=== PATIENT | female | born 1990 | race Caucasian/White ===

== ENCOUNTER → 2016-11-18 16:39 | Observation (INO) ==
--- NOTE | 2016-11-18 15:24 | OB/GYN History & Physical ---
Date of Encounter: 11/18/16 Time of Encounter: 15:20 Assessment and Plan (1) Vaginal discharge during in third trimester Current visit: Yes Status: Acute - Nitrazine test negative -We will monitor and discharge if patient does not progress. History of Present Illness HPI: Ms. Francois is a 26 year old female who is 39 weeks and is a . She states that she has had a watery discharge today that she thought was possibly her water broken. She has not felt any contractions. She does not appear to be having consistent contractions here. Her nitrazine test was negative. Her cervix is high and posterior. Past Med Surg Social Fam HX - Past Medical History Psychiatric history: no psych history - Past Surgical History Surgical History: other - Social History Smoking Status: Never smoker - Family History Mother Living Status: Still Living Hx Family Cardiac Disorders: Yes (HTN, AFIB) Hx Family Endocrine Disorder: Yes (BORDERLINE DIABETIC.) Hx Family Medical Disorders: Yes (AV MALFORMATION IN BRAIN) Obstetrical History - Pregnancies : 1 Para: 0 Medications and Allergies Tablet 11/18/16 [History] Allergies No Known Allergies Allergy (Verified 11/18/16 15:16) Review of System OB All systems PM: reviewed and no additional remarkable complaints except as stated - Constitutional Constitutional ROS IM: no anorexia, no chills, no fatigue, no fever(s), no headache(s) - Nose, mouth, and throat Nose, mouth and throat: no dysphagia, no facial pain, no nasal congestion, no nasal discharge, no sore throat, no vertigo - Cardiovascular Cardiovascular: no chest pain, no dyspnea, no edema, no pedal edema - Respiratory Respiratory: no cough, no chest congestion - Gastrointestinal Gastrointestinal: no abdominal pain, no change in bowel habits, no constipation , no diarrhea, no hematemesis, no hematochezia, no loose stools, no nausea, no vomiting - Genitourinary Genitourinary: other (Patient reports a small amount of blood on the toilet paper after she urinated today. She also reports a four-day history of burning after she urinates. She states this happens after she urinates a small amount.) - Muscloskeletal Musculoskeletal: no arthralgias, no back pain, no joint swelling, no muscle cramps, no neck pain - Integumentary Integumentary: no rash Exam - Constitutional Constitutional: well developed, well nourished, no acute distress - HEENT HEENT: EOMI, PERRL, Normocephaly, Mucus Membranes Moist - Neck Neck exam: full ROM, normal inspection, trachea midline - Lungs Respiratory exam: CTAB - Cardiovascular Cardiovascular exam: RRR - Abdomen Abdomen: Present: bowel sounds normal, gravid, non tender - Extremities Extremities exam: full ROM, normal capillary refill, normal inspection, radial pulses palpable and symetrical Deep Tendon Reflex Grade: 2+ Normal Results All other labs normal.
[2016-11-18 15:44] LABS: Bilirubin,Urine Negative (Negative); Blood,Urine Small (Negative); Clarity,Urine Cloudy (Clear); Color,Urine Yellow (Yellow); Glucose,Urine (UA) Normal (Normal); Ketones,Urine Negative (Negative); Leukocyte Esterase,Urine Moderate (Negative); Nitrite,Urine Negative (Negative); Protein,Urine Negative (Neg-Trace); Specific Gravity,Urine 1.022 (1.010-1.025); Urobilinogen,Urine Normal (Normal)
[2016-11-18 15:47] LABS: Bacteria,Urine Many per hpf (None-Few); Squamous Epithelial Cell,Urine Many per lpf (None-Few); WBC,Urine 15-30 per hpf (0-3)
--- NOTE | 2016-11-18 16:17 | Discharge Summary ---
Date of Encounter: 11/18/16 Time of Encounter: 16:17 - Discharge Diagnosis (1) Vaginal discharge during in third trimester Priority: Secondary Status: Acute Comments: Nitrazine negative. (2) UTI (urinary tract infection) Priority: Primary Status: Acute Comments: -Keflex outpatient. -Follow-up with Dr. Mantilla in the office. Qualifiers: Urinary tract infection type: acute cystitis Hematuria presence: with hematuria Qualified Code(s): N30.01 - Acute cystitis with hematuria - Discharge Medications Prescriptions: Cephalexin [Keflex] 500 mg PO QID 7 Days Home Medications: Cephalexin [Keflex] 500 mg PO QID 7 Days 11/18/16 [Rx] Tablet 11/18/16 [History] Allergies/Adverse Reactions: Allergies No Known Allergies Allergy (Verified 11/18/16 15:16) Data Procedures and tests throughout hospitalization: Laboratory Tests 11/18/16 15:40 Urine Color Yellow Urine Clarity Cloudy A Urine pH 6.0 Ur Specific [place] 1.022 Urine Protein Negative Urine Glucose (UA) Normal Urine Ketones Negative Urine Blood Small H Urine Nitrite Negative Urine Bilirubin Negative Urine Urobilinogen Normal Ur Leukocyte Esterase Moderate H Urine Microscopic RBC 5-15 H Urine Microscopic WBC 15-30 H Ur Squamous Epith Cells Many H Urine Bacteria Many H Hyaline Casts Test Not Performed Ur Culture Indicated? YES A Labs on day of discharge: Labs from last 24 hours 11/18/16 15:40 Urine Color Yellow Urine Clarity Cloudy A Urine pH 6.0 Ur Specific [place] 1.022 Urine Protein Negative Urine Glucose (UA) Normal Urine Ketones Negative Urine Blood Small H Urine Nitrite Negative Urine Bilirubin Negative Urine Urobilinogen Normal Ur Leukocyte Esterase Moderate H Urine Microscopic RBC 5-15 H Urine Microscopic WBC 15-30 H Ur Squamous Epith Cells Many H Urine Bacteria Many H Hyaline Casts Test Not Performed Ur Culture Indicated? YES A Date of admission: 11/18/16 14:39 Primary care physician: PCP NO - Patient Status Disposition: Home, Self-Care Condition: Good - Discharge Instructions Follow Up With: TC,PCP [Primary Care Provider] - Luciana Mantilla DO [Partnered Physician] - - Diet and Activity Activity: increase activity as tolerated Diet: regular diet Hospital Course SALES LEADER Time Attestation: Total time spent providing and/or coordinating discharge services: Time Spent: Less than 30 minutes - VTE Reasons for not Prescribing Prophylaxis: Treatment not Indicated - Low risk for VTE
== END | disposition home or self-care (01) ==
LOC: 1NENULAB
PROVIDERS: ADMIT Emergency Medicine; ATTEND Obstetrics & Gynecology

== ENCOUNTER 2016-11-27 06:00 | Inpatient (IN) ==
[2016-11-27] MEDS ORDERED: miSOPROStol 25 MCG TABLET PO PRN (06:59)
[2016-11-27] MEDS ORDERED: Naloxone 0.4 MG/ML INJ IVP PRN (06:59)
[2016-11-27] MEDS ORDERED: Metoclopramide 10 MG/2 ML VIAL IVP PRN (06:59)
[2016-11-27] MEDS ORDERED: Famotidine 20 MG/2 ML VIAL IVP PRN (06:59)
[2016-11-27 07:14] LABS: Basophils % 0.2 %; Eosinophils # 0.1 K/mcL (0.0-0.6); Eosinophils % 0.7 %; Hematocrit 36.7 % (35.3-44.9); Hemoglobin 11.7 g/dL (11.5-15.4); Immature Granulocytes % 0.4 % (0-4); Lymphocytes # 1.7 K/mcL (0.6-4.6); Lymphocytes % 20.1 %; Mean Corpuscular HGB Conc 31.9 g/dL (31.6-35.5); Mean Corpuscular Hemoglobin 27.5 pg (28.0-33.3); Mean Corpuscular Volume 86.2 fL (83.0-100.0); Mean Platelet Volume 12.4 fL (9.4-12.4); Monocytes # 0.6 K/mcL (0.0-1.3); Monocytes % 7.3 %; Neutrophils # 6.1 K/mcL (1.6-8.9); Platelet Count 186 K/mcL (140-400); Red Blood Count 4.26 M/mcL (3.82-4.97); Red Cell Distribution Width 15.7 % (11.5-14.5); Segmented Neutrophils % 71.3 %
--- NOTE | 2016-11-27 10:27 | OB/GYN History & Physical ---
Date of Encounter: 11/27/16 Time of Encounter: 10:25 Assessment and Plan (1) Post-term , 40-42 weeks of gestation Current visit: Yes Status: Acute - Induction due to gestation being post 40 weeks. - Cytotec given. - We will continue to monitor normal labor progression. History of Present Illness HPI: Ms. Francois is a 26 year old female at 40 weeks and 3 days presenting for induction. She is resting comfortably in bed with no complaints at this time. She states she does feel her contractions mildly. She states she is not in any discomfort. She states she may have an epidural but at this time does not request one. Past Med Surg Social Fam HX - Past Medical History Source: patient Medical history: no medical history Psychiatric history: no psych history - Past Surgical History Surgical History: other (wisdom teeth) - Social History Smoking Status: Never smoker Smokeless Tobacco Status: No Alcohol use: none Drug use: none - Family History Mother Living Status: Still Living Hx Family Cardiac Disorders: Yes (HTN) Hx Family Cancer: Yes (uterine cancer, hysterectomy) Hx Family Endocrine Disorder: Yes (renal failure) Obstetrical History - Pregnancies : 1 Para: 0 Medications and Allergies Cephalexin [Keflex] 500 mg PO QID 7 Days 11/18/16 [Rx] Tablet 1 tab PO DAILY 11/18/16 [History] Allergies No Known Allergies Allergy (Verified 11/27/16 06:13) Review of System OB All systems PM: reviewed and no additional remarkable complaints except as stated - Constitutional Constitutional ROS IM: no chills, no fever(s), no headache(s) - Nose, mouth, and throat Nose, mouth and throat: no dizziness, no headache(s) - Cardiovascular Cardiovascular: no chest pain, no chest pain at rest, no chest pain with activity, no dyspnea, no leg edema, no lightheadedness, no syncope - Respiratory Respiratory: no cough, no dyspnea, no chest congestion - Gastrointestinal Gastrointestinal: no change in bowel habits, no constipation, no cramping, no diarrhea, no hematemesis, no hematochezia, no loose stools, no melena, no nausea , no vomiting - Genitourinary Genitourinary: amenorrhea, vaginal discharge (Brownish in color) - Menstruation Menstruation: amenorrhea - Muscloskeletal Musculoskeletal: no neck pain, no numbness, no tingling - Integumentary Integumentary: no rash - Neurological Nerological: no dizziness, no headache(s), no loss of vision, no syncope, no vertigo Exam - Constitutional Constitutional: well developed, well nourished, no acute distress, average body habitus - HEENT HEENT: EOMI, PERRL, Normocephaly, Mucus Membranes Moist - Neck Neck exam: full ROM, normal inspection - Lungs Respiratory exam: CTAB - Cardiovascular Cardiovascular exam: RRR - Abdomen Abdomen: Present: bowel sounds normal, gravid, non tender - Extremities Extremities exam: full ROM, normal capillary refill, radial pulses palpable and symetrical - Cervix Dilation: 3 Effacement: 75 Station: -3 - Uterus Uterus exam: Present: normal size, normal contour. Absent: tender Results Result Diagrams: 11/27/16 06:52 Abnormal lab results MCH 27.5 pg (28.0-33.3) L 11/27/16 06:52 RDW 15.7 % (11.5-14.5) H 11/27/16 06:52 All other labs normal. - Attending Attestation I examined this patient and my medical decision-making was reviewed with the Resident Physician. I agree with the documented findings, disposition and treatment plan as described except to the extent set forth below. Luciana Mantilla DO
--- NOTE | 2016-11-27 11:18 | OB Labor Progress Note ---
Date of Encounter: 11/27/16 Time of Encounter: 11:16 Labor Progress Note - Subjective Subjective: Pt comfortable at this time. - Cervix Cervix: 3-4/80/-1 - Heart Tones Heart Tones: Category I - [place]: 1-5 minutes - Interventions Interventions: AROM for moderate amount clear fluid. IUPC placed. - Plan Plan: Continue to monitor. Pt to be OOB on birthing ball. Will augment labor with pitocin if needed.
[2016-11-27] MEDS ORDERED: Oxytocin 20 units/ LR 1000 mL 20 UNIT/1,000 ML BAG IVC SCH (11:45)
[2016-11-27] MEDS: Ringers Solution, Lactated 1,000 ML IVC SCH ×3 (12:19→23:29)
[2016-11-27] MEDS ORDERED: *HR* Nalbuphine 20 MG/ML AMPUL IVP PRN (12:36)
[2016-11-27] MEDS ORDERED: *HR* Nalbuphine 20 MG/ML AMPUL ONE (12:38)
[2016-11-27] MEDS ORDERED: *HR* FentaNYL (PF) 100 MCG/2 ML VIAL EP ONE (14:42)
[2016-11-27] MEDS ORDERED: Bupivacaine-MPF 0.25% 10 ML VIAL EP ONE (14:42)
[2016-11-27] MEDS ORDERED: Epidural Premix (fent/bupiv) 110 ML EP SCH (14:45)
[2016-11-27] MEDS ORDERED: *HR* FentaNYL (PF) 100 MCG/2 ML VIAL ONE (14:47)
[2016-11-27] MEDS ORDERED: Bupivacaine-MPF 0.25% 10 ML VIAL ONE (14:48)
[2016-11-27] MEDS ORDERED: Epidural Premix (fent/bupiv) 110 ML EP ONE ×2 (14:48→21:14)
--- NOTE | 2016-11-27 15:29 | Anesthesia Evaluation PreOp ---
Date of Encounter: 11/27/16 Time of Encounter: 14:33 - Past History Planned Operation: labor epidural Cardiac History: Denies any Significant Hx Pulmonary History: Denies Any Significant HX CAT TENDER History: Denies Any Significant HX Other Medical History: Denies Any Significant HX Anesthesia History: No Prior Anesthetic Complications, Past Anesthesia (wisdom teeth extracted. No family history of anesthetic problems) : Yes Alcohol Use: none Drug use: none Medications and Allergies Cephalexin [Keflex] 500 mg PO QID 7 Days 11/18/16 [Rx] Tablet 1 tab PO DAILY 11/18/16 [History] Allergies No Known Allergies Allergy (Verified 11/27/16 06:13) - Meds/Allergy Pre-op Review Medications Reviewed: Yes Allergies Reviewed: Yes Beta Blockers on Current Med List: No Anesthesia Results - Labs 11/27/16 06:52 Anesthesia Exam 123/85, 70, 16, 98%. Height: 5'7" Weight: 77kg NPO (# of Hours): 8 Pain Scale: 10 Pain Scale Used: Numeric (1 - 10) - HEENT Pupil (Motor): Pupils equal, EOMI Mallampati: II Teeth: Normal Oral Opening: Greater than 3 - CAT TENDER LOC: Oriented CAT TENDER Motor: Normal RUE, Normal LUE, Normal RLE, Normal LLE, Normal Face CAT TENDER Sensory: Normal: RUE, LUE, RLE, LLE, Face - Cardiac Rhythm: Regular Murmur: None - Pulmonary Breath Sounds: bilateral Clear Respiratory Effort: Symmetrical Anesthesia Assess/Plan ASA Score: 2 Modified [place] Scale for Level of Consciousness: Cooperative, oriented, and tranquil Anesthetic Plan: Regional Monitoring Plan: Standard Monitors
--- NOTE | 2016-11-27 15:33 | Anesthesia Procedures ---
Date of Encounter: 11/27/16 Time of Encounter: 15:00 Procedures: Anesthesia - Epidural/Spinal Patient ID/Chart reviewed: Yes Patient examined: Yes OB Eval: Gestational age: 40 OB Eval: : 1 OB Eval: Hx Para: 0 OB Eval: Dilated at (cm): 3 OB Eval: Contractions: Non-stressed pattern Consent Obtained: Yes Supplemental Oxygen: None/Room Air Site Prep: Aseptic Technique, Sterile prep and drape, Povidone-Iodine 1% Patient position: upright Local Anesthetic: Lidocaine 1% Amount of Local Anesthetic used: 3 Touhy Needle Gauge: 18 Touhy Needle Depth (cm): 5 Catheter Depth at Skin (cm): 18 Test Dose (1.5% Lido + Epi): Volume given (mls): 3 Test Dose Result: Negative Loading Dose: 0.25% Marcaine (mls): 8 Loading Dose: Fentanyl (mcg): 100 Loading Dose Administered: Thru Catheter Infusion Med: 0.125% Bupivacaine w/ 2 mcg/ml Fentanyl Infusion Rate (mls/hr): [address]: Tegaderm (16), Tape Interspace Used: L3-L4 Loss of Resistance (LATIA): Yes Blood: No CSF: No Paresthesia: No Vitals + FHT's: 3 Vital Signs Time 1500 1505 1510 1515 1520 1525 BP 137/75 126/82 124/79 126/85 126/77 125/77 Pulse 70 73 94 95 77 86 FHTs 130 130 130 130 130 130
--- NOTE | 2016-11-27 16:38 | OB Labor Progress Note ---
Date of Encounter: 11/27/16 Time of Encounter: 16:37 Labor Progress Note - Subjective Subjective: Pt comfortable with epidural - Cervix Cervix: 6/80/-1 - Heart Tones Heart Tones: Category I - [place]: 2-3 1/2 minutes - Plan Plan: Continue to titrate pitocin. Anticipate .
[2016-11-27] MEDS ORDERED: Lidocaine 1% 20 ML MDV ONE (21:14)
[2016-11-27] MEDS ORDERED: Acetaminophen 325 MG TABLET PO ONE (23:16)
[2016-11-28] MEDS ORDERED: Epidural Premix (fent/bupiv) 110 ML EP ONE (04:03)
--- NOTE | 2016-11-28 05:46 | OB/GYN Procedure Note ---
Delivery - Delivery Date: 11/28/16 Provider: Luciana Mantilla Intrapartum events: none Delivery induction: AROM, oxytocin, misoprostol Delivery monitor: external FHT, external uterine, internal uterine Anesthesia: epidural Estimated Blood Loss: 400 - Infant (s) Infant A Infant Delivery Date: 11/28/16 Infant Delivery Time: 05:19 Presentation: vertex Position: CHRISTIANO Route of delivery: Gender: Female Viability: Viable Pounds: 8 Ounces: 3 Weight Gram: 3.725 kg at 1 minute: 8 at 5 mins: 9 Shoulder Dystocia: not encountered Specimens collected: cord blood Placenta: spontaneous Cord: 3 umbilical vessels - Repair Episiotomy: none Laceration Description: Perineal - 1st Degree - Complications Delivery complications: none Delivery comments: Called to room with patient complete and +3 station. Under maternal effort she delivered a viable female weighing 8 lbs. 3 oz. and Apgars 8 and 9 at one and 5 minutes respectively over an first-degree perineal laceration. Following delivery of the head there was no nuchal cord encountered. The infant was bulb suctioned. The remainder of the delivered with maternal effort. No shoulder dystocia was encountered. was placed on mom's abdomen and cord was allowed to pulsate for 1 minute prior to clamping and cutting. Cord blood was collected. Placenta delivered spontaneously, complete, and intact with a three-vessel cord. The first-degree/vaginal sulcus laceration was repaired using 0 Vicryl in a running locked fashion until hemostasis was assured. Sponge and needle counts were correct at the end of the procedure. Mother and infant are recovering in the LDR in stable condition. - Disposition Mom disposition: stable in LDR disposition: stable in LDR
[2016-11-28] MEDS ORDERED: Oxytocin 20 units/ LR 1000 mL 20 UNIT/1,000 ML BAG IVC ONE (08:14)
[2016-11-28] MEDS ORDERED: Acetaminophen 325 MG TABLET PO PRN (08:14)
[2016-11-28] MEDS ORDERED: Oxytocin 20 units/ LR 1000 mL 20 UNIT/1,000 ML BAG IV SCH (08:14)
[2016-11-28] MEDS: Ibuprofen 600 MG TABLET PO PRN (09:10)
[2016-11-28] MEDS: Prenatal Vit/FA 1 EACH TABLET PO SCH (12:09)
[2016-11-28] MEDS: cephALEXin 500 MG CAPSULE PO SCH ×3 (12:09→20:45)
[2016-11-29] MEDS: Ibuprofen 600 MG TABLET PO PRN (03:44)
[2016-11-29 05:17] LABS: Basophils % 0.2 %; Eosinophils # 0.2 K/mcL (0.0-0.6); Eosinophils % 1.2 %; Hematocrit 30.4 % (35.3-44.9); Immature Granulocytes % 0.7 % (0-4); Lymphocytes # 2.2 K/mcL (0.6-4.6); Lymphocytes % 13.5 %; Mean Corpuscular HGB Conc 31.9 g/dL (31.6-35.5); Mean Corpuscular Volume 87.6 fL (83.0-100.0); Mean Platelet Volume 12.1 fL (9.4-12.4); Monocytes # 0.7 K/mcL (0.0-1.3); Monocytes % 4.4 %; Platelet Count 155 K/mcL (140-400); Red Blood Count 3.47 M/mcL (3.82-4.97); Red Cell Distribution Width 16.7 % (11.5-14.5)
[2016-11-29 05:25] LABS: Hemoglobin 9.7 g/dL (11.5-15.4)
[2016-11-29] MEDS: cephALEXin 500 MG CAPSULE PO SCH (08:46)
[2016-11-29] MEDS: Prenatal Vit/FA 1 EACH TABLET PO SCH (08:47)
--- NOTE | 2016-11-29 09:14 | Discharge Summary ---
Date of Encounter: 11/29/16 Time of Encounter: 09:12 - Discharge Diagnosis (1) Post-term , 40-42 weeks of gestation Priority: Primary Status: Chronic (2) Vaginal delivery Priority: Primary Status: Acute Comments: Routine PP care. - Discharge Medications Prescriptions: Ibuprofen [Motrin] 600 mg PO Q6HR PRN #60 tablet PRN Reason: Cramping Home Medications: Cephalexin [Keflex] 500 mg PO QID 7 Days 11/18/16 [Rx] Tablet 1 tab PO DAILY 11/18/16 [History] Ibuprofen [Motrin] 600 mg PO Q6HR PRN #60 tablet 11/29/16 [Rx] Allergies/Adverse Reactions: Allergies No Known Allergies Allergy (Verified 11/27/16 06:13) Data Procedures and tests throughout hospitalization: Laboratory Tests 11/27/16 11/29/16 06:52 04:33 WBC 8.5 16.3 H D RBC 4.26 3.47 L Hgb 11.7 9.7 L D Hct 36.7 30.4 L MCV 86.2 87.6 MCH 27.5 L 28.0 MCHC 31.9 31.9 RDW 15.7 H 16.7 H Plt Count 186 155 MPV 12.4 12.1 Immature Gran % 0.4 0.7 Seg Neutrophils % 71.3 80.0 Lymphocytes % 20.1 13.5 Monocytes % 7.3 4.4 Eosinophils % 0.7 1.2 Basophils % 0.2 0.2 Neutrophils # 6.1 13.0 H Lymphocytes # 1.7 2.2 Monocytes # 0.6 0.7 Eosinophils # 0.1 0.2 Basophils # 0.0 0.0 Labs on day of discharge: Labs from last 24 hours 11/29/16 04:33 WBC 16.3 H D RBC 3.47 L Hgb 9.7 L D Hct 30.4 L MCV 87.6 MCH 28.0 MCHC 31.9 RDW 16.7 H Plt Count 155 MPV 12.1 Immature Gran % 0.7 Seg Neutrophils % 80.0 Lymphocytes % 13.5 Monocytes % 4.4 Eosinophils % 1.2 Basophils % 0.2 Neutrophils # 13.0 H Lymphocytes # 2.2 Monocytes # 0.7 Eosinophils # 0.2 Basophils # 0.0 Date of admission: 11/27/16 06:00 Primary care physician: PCP NO Consults: 11/28/16 08:14 Consult to Sustainability Project Coordinator [CONS] Routine Comment: Vaginal delivery, consult needed Discharging clinician: Luciana Mantilla Anticipated date of discharge: 11/29/16 - Patient Status Disposition: Home, Self-Care Condition: Good Functional capacity at discharge: independent ambulation Overall status at discharge: patient is progressing back to baseline - Discharge Instructions Follow Up With: TC,PCP [Primary Care Provider] - Luciana Mantilla DO [Partnered Physician] - - Diet and Activity Activity: increase activity as tolerated Diet: advance to your usual diet Hospital Course Reason for admission: induction of labor Delivery: Episiotomy: none Laceration: 2nd degree Other procedures: none complications: none Discharge diagnosis: post term preg-delivered [place] baby: female Time Attestation: Total time spent providing and/or coordinating discharge services: Time Spent: Less than 30 minutes Exam - Constitutional Vitals: Temp Pulse Resp BP Pulse Ox 97.4 F L 84 20 124/88 100 11/29/16 03:58 11/29/16 03:58 11/29/16 08:49 11/29/16 03:58 11/29/16 03:58 General appearance IM: A&O X 3, no acute distress - Respiratory Respiratory exam: Present: CTAB. Absent: respiratory distress - Cardiovascular Cardiovascular exam IM: Present: RRR. Absent: irregular rhythm - GI/Abdominal GI/Abdominal exam IM: normal bowel sounds - Rectal Rectal exam: deferred - Uterine Tone: Firm Uterus Position: At Umbilicus - Extremities Exam Extremities exam IM: Absent: calf tenderness
[2016-11-29 09:22] VITALS: BP 121/85
[2016-11-29] MEDS ORDERED: Lanolin 7 G OINT...G. TP PRN (12:03)
== END 2016-11-29 13:08 | disposition home or self-care (01) | DRG 775 ==
LOC: 1NENULAB 06:00 → 1NENUOBS 11-28 09:25
PROVIDERS: ADMIT Obstetrics & Gynecology; ATTEND Obstetrics & Gynecology

== ENCOUNTER 2019-02-08 05:58 | Inpatient (IN) ==
[2019-02-08] MEDS ORDERED: Metoclopramide 10 MG/2 ML VIAL IVP PRN (06:34)
[2019-02-08] MEDS ORDERED: *HR* Nalbuphine 10 MG/ML AMPUL IVP PRN (06:34)
[2019-02-08] MEDS ORDERED: Famotidine 20 MG/2 ML VIAL IVP PRN (06:34)
[2019-02-08] MEDS ORDERED: Ondansetron 4 MG/2 ML VIAL IVP PRN (06:34)
[2019-02-08] MEDS ORDERED: Naloxone 0.4 MG/ML INJ IVP PRN (06:34)
[2019-02-08] MEDS ORDERED: Oxytocin 20 units/ LR 1000 mL 20 UNIT/1,000 ML BAG IVC SCH ×2 (06:45→15:59)
[2019-02-08] MEDS ORDERED: Ringers Solution, Lactated 1,000 ML IVC SCH (06:45)
[2019-02-08 06:56] LABS: Amphetamine Screen,Urine Negative ng/mL (Cutoff=1000); Barbiturate Screen,Urine Negative ng/mL (Cutoff=200); Basophils % 0.2 %; Eosinophils % 0.3 %; Hemoglobin 11.4 g/dL (11.5-15.4); Immature Granulocytes % 0.4 % (0-4); Lymphocytes # 1.3 K/mcL (0.6-4.6); Lymphocytes % 8.9 %; Mean Corpuscular HGB Conc 31.7 g/dL (31.6-35.5); Mean Corpuscular Hemoglobin 26.8 pg (28.0-33.3); Mean Corpuscular Volume 84.7 fL (83.0-100.0); Mean Platelet Volume 11.7 fL (9.4-12.4); Monocytes # 0.8 K/mcL (0.0-1.3); Monocytes % 5.8 %; Neutrophils # 11.9 K/mcL (1.6-8.9); Platelet Count 197 K/mcL (140-400); Red Blood Count 4.25 M/mcL (3.82-4.97); Red Cell Distribution Width 13.8 % (11.5-14.5); Segmented Neutrophils % 84.4 %
[2019-02-08 06:57] LABS: Benzodiazepines Screen,Urine Negative ng/mL (Cutoff=300); Cannabinoid Screen,Urine Negative ng/mL (Cutoff = 50); Cocaine Screen,Urine Negative ng/mL (Cutoff= 300); Opiate Screen,Urine Negative ng/mL (Cutoff=300); Phencyclidine Screen,Urine Negative ng/mL (Cutoff=25)
[2019-02-08] MEDS ORDERED: *HR* FentaNYL (PF) 100 MCG/2 ML VIAL ONE (07:41)
[2019-02-08] MEDS ORDERED: Lidocaine -MPF 1% 5 ML AMPUL ONE (07:41)
[2019-02-08] MEDS ORDERED: *HR* Ropivacaine/PF 0.2% 20 ML VIAL ONE (07:41)
--- NOTE | 2019-02-08 07:47 | OB/GYN History & Physical ---
Date of Encounter: 02/08/19 Time of Encounter: 07:30 Assessment and Plan (1) 39 weeks gestation of Current visit: Yes Status: Acute (2) Spontaneous onset of labor Current visit: Yes Status: Acute Patient was examined by RN and cervix 6-7 cm dilated. She is requesting epidura l. We will consult anesthesia for epidural placement and then continue to manage expectantly with EFM History of Present Illness Chief complaint: painful contractions HPI: Ms. Francois is a 28 year old female G 2 P 1-0-0-1 at 39 2/7 weeks presents to labor and delivery with painful contractions every 3-4 minutes. She has also noticed some vaginal bleeding this AM. She denies any leaking fluid. She reports good movement. Her has been uncomplicated. Past Med Surg Social Fam HX - Past Medical History Source: patient Medical history: no medical history Psychiatric history: no psych history - Past Surgical History Surgical History: other Additional surgical history: wisdom teeth - Social History Smoking Status: Never smoker Smokeless Tobacco Status: No Alcohol use: none Drug use: none Occupational status: student Current living situation: Home - Independent Activity Level: Independent ambulation - Family History Mother Living Status: Still Living Hx Family Cardiac Disorders: Yes (HTN) Hx Family Cancer: Yes (uterine cancer, hysterectomy) Hx Family Endocrine Disorder: Yes (renal failure) Hx Family Medical Disorders: Yes (AVM) Obstetrical History - Pregnancies : 2 Para: 1 Term: 1 : 0 Ab's: 0 Livin Medications and Allergies Tablet 1 tab PO DAILY 11/18/16 [History] Allergy/AdvReac Type Severity Reaction Status Date / Time No Known Allergies Allergy Verified 11/27/16 06:13 Review of System OB All systems PM: reviewed and no additional remarkable complaints except as stated - Constitutional Constitutional ROS IM: as per HPI, no fever(s), no headache(s) - Gastrointestinal Gastrointestinal: no cramping, no nausea, no vomiting - Genitourinary Genitourinary: amenorrhea, no menorrhagia, no metrorrhagia - Menstruation Menstruation: amenorrhea Exam - Constitutional Constitutional: well developed, well nourished, no acute distress, average body habitus - HEENT HEENT: Normocephaly, Mucus Membranes Moist - Lungs Respiratory exam: CTAB - Cardiovascular Cardiovascular exam: RRR - Abdomen Abdomen: Present: bowel sounds normal, gravid, non tender (Kanu's 8 pounds in cephalic presentation) - Cervix Dilation: 6 Effacement: 80 Station: -2 Results Result Diagrams: 02/08/19 06:38 Abnormal lab results WBC 14.1 K/mcL (4.3-11.1) H 02/08/19 06:38 Hgb 11.4 g/dL (11.5-15.4) L 02/08/19 06:38 MCH 26.8 pg (28.0-33.3) L 02/08/19 06:38 Neutrophils # 11.9 K/mcL (1.6-8.9) H 02/08/19 06:38 All other labs normal. - VTE Reasons for not Prescribing Prophylaxis: Treatment not Indicated - Low risk for VTE
[2019-02-08] MEDS ORDERED: Epidural Premix (fent/bupiv) 110 ML EP ONE (08:02)
--- NOTE | 2019-02-08 08:33 | Anesthesia Evaluation PreOp ---
Date of Encounter: 02/08/19 Time of Encounter: 07:55 - Past History Planned Operation: andreia Cardiac History: Denies any Significant Hx Pulmonary History: Denies Any Significant HX CUSTOMER OPERATIONS INTERN History: Denies Any Significant HX Other Medical History: Denies Any Significant HX Anesthesia History: No Prior Anesthetic Complications, Past Anesthesia : Yes () Alcohol Use: none Drug use: none Medications and Allergies Tablet 1 tab PO DAILY 11/18/16 [History] Allergy/AdvReac Type Severity Reaction Status Date / Time No Known Allergies Allergy Verified 11/27/16 06:13 - Meds/Allergy Pre-op Review Medications Reviewed: Yes Allergies Reviewed: Yes Beta Blockers on Current Med List: No Anesthesia Results - Labs 02/08/19 06:38 Anesthesia Exam O2 Sat Height 1.7 m Weight 80.286 kg Height: 67 Weight: 177 - HEENT Pupil (Motor): Pupils equal Mallampati: II Teeth: Normal Oral Opening: Greater than 3 - CUSTOMER OPERATIONS INTERN LOC: Oriented CUSTOMER OPERATIONS INTERN Motor: Normal RUE, Normal LUE, Normal RLE, Normal LLE, Normal Face CUSTOMER OPERATIONS INTERN Sensory: Normal: RUE, LUE, RLE, LLE, Face - Cardiac Rhythm: Regular Murmur: None JVD: No Carotid Bruit: No - Pulmonary Breath Sounds: bilateral Clear Respiratory Effort: Symmetrical Anesthesia Assess/Plan ASA Score: 2 Level of consciousness: Cooperative Anesthetic Plan: Epidural Monitoring Plan: Standard Monitors
--- NOTE | 2019-02-08 08:35 | Anesthesia Procedures ---
Date of Encounter: 02/08/19 Time of Encounter: 07:55 Procedures: Anesthesia - Epidural/Spinal Patient ID/Chart reviewed: Yes Patient examined: Yes OB Eval: : 2 OB Eval: Hx Para: 1 OB Eval: Contractions: Non-stressed pattern Consent Obtained: Yes Supplemental Oxygen: None/Room Air Site Prep: Aseptic Technique Patient position: upright Local Anesthetic: Lidocaine 1% Amount of Local Anesthetic used: 3 Touhy Needle Gauge: 18 Touhy Needle Depth (cm): 4 Catheter Depth at Skin (cm): 12 Test Dose (1.5% Lido + Epi): Volume given (mls): 3 Test Dose Result: Negative Loading Dose: Fentanyl (mcg): 100 Loading Dose: Other: 5ml 0.2% ropivicaine Loading Dose Administered: Thru Touhy Needle Infusion Med: 0.125% Bupivacaine w/ 2 mcg/ml Fentanyl Infusion Rate (mls/hr): [address]: Tegaderm Interspace Used: L3-L4 Loss of Resistance (LATIA): Yes Blood: No CSF: No Paresthesia: No
--- NOTE | 2019-02-08 08:40 | OB Labor Progress Note ---
Date of Encounter: 02/08/19 Time of Encounter: 08:38 Labor Progress Note - Subjective Subjective: Patient comfortable after her epidural. She denies any complaints. - Cervix Cervix: 7/80/-1 vertex - Heart Tones Heart Tones: 140, category 1 with scalp stim noted on exam - [place]: q 3- 4minutes spontaneously - Interventions Interventions: AROM with clear fluid. Continue expectant management with EFM
[2019-02-08] MEDS ORDERED: Epidural Premix (fent/bupiv) 110 ML EP SCH (08:45)
[2019-02-08] MEDS ORDERED: Acetaminophen 325 MG TABLET PO ONE (10:19)
[2019-02-08] MEDS ORDERED: ceFAZolin 1,000 MG in Water for inj. (sterile) 20 ML 10 ML IVP SCH (13:05)
[2019-02-08] MEDS ORDERED: Oxytocin 20 units/ LR 1000 mL 20 UNIT/1,000 ML BAG IVC ONE (15:59)
[2019-02-08] MEDS ORDERED: Acetaminophen 325 MG TABLET PO PRN (15:59)
[2019-02-08] MEDS: Ibuprofen 600 MG TABLET PO PRN (16:30)
--- NOTE | 2019-02-08 17:14 | OB/GYN Procedure Note ---
Delivery - Delivery Date: 02/08/19 Provider: Luciana Mantilla Intrapartum events: febrile- temp >100.3, polyhydramnios Delivery augmentation: rupture of membranes Delivery monitor: external FHT, external uterine Anesthesia: epidural Quantitated Blood Loss: 400 - Infant (s) A Delivery Date: 02/08/19 Delivery Time: 14:13 Presentation: vertex Position: CHRISTIANO Gender: Female Viability: Viable Pounds: 8 Ounces: 8 Weight Gram: 3.845 kg at 1 minute: 7 at 5 mins: 9 Shoulder Dystocia: not encountered Specimens collected: cord blood Placenta: spontaneous Cord: 3 umbilical vessels - Repair Episiotomy: none Laceration Description: None - Complications Delivery complications: none Delivery comments: Called to room with patient complete and +1 station. Under maternal effort she delivered a viable female weighing 8 pounds 8 oz and Apgars 7 and 9 at one and five minutes respectively over an intact perineum. Following the delivery the cord was allowed to cease pulsations. It was then double clamped and cut with assistance from the father. The placenta delivered spontaneous, complete, and intact with a 3 vessel cord. There were no vaginal, cervical, or vulvar lacerations on exam. No shoulder dystocia or nuchal cord encountered in the delivery. The placenta was ordered to be cultured and sent to pathology due to maternal fever and tachycardia. Mother and are left to recover in the LDR in stable condition. - Disposition Mom disposition: stable in LDR [place] disposition: stable in LDR
[2019-02-08] MEDS: CeFAZolin Premix DUPLEX 2,000 MG/50 ML BAG IVPB SCH (21:56)
[2019-02-09] MEDS: Ibuprofen 600 MG TABLET PO PRN ×3 (04:33→20:46)
[2019-02-09 05:19] LABS: Basophils % 0.2 %; Eosinophils # 0.1 K/mcL (0.0-0.6); Eosinophils % 0.5 %; Hemoglobin 10.7 g/dL (11.5-15.4); Immature Granulocytes % 0.5 % (0-4); Lymphocytes # 2.5 K/mcL (0.6-4.6); Lymphocytes % 12.1 %; Mean Corpuscular HGB Conc 31.5 g/dL (31.6-35.5); Mean Corpuscular Hemoglobin 26.9 pg (28.0-33.3); Mean Corpuscular Volume 85.4 fL (83.0-100.0); Mean Platelet Volume 11.8 fL (9.4-12.4); Monocytes # 1.2 K/mcL (0.0-1.3); Monocytes % 5.9 %; Neutrophils # 16.6 K/mcL (1.6-8.9); Platelet Count 172 K/mcL (140-400); Red Blood Count 3.98 M/mcL (3.82-4.97); Red Cell Distribution Width 14.3 % (11.5-14.5); Segmented Neutrophils % 80.8 %
[2019-02-09] MEDS: CeFAZolin Premix DUPLEX 2,000 MG/50 ML BAG IVPB SCH ×2 (06:04→13:49)
[2019-02-09] MEDS: Prenatal Vit/FA 1 EACH TABLET PO SCH (08:02)
--- NOTE | 2019-02-09 09:11 | Discharge Summary ---
Date of Encounter: 02/09/19 Time of Encounter: 09:09 - Discharge Diagnosis (1) Breast feeding status of mother Priority: Secondary Status: Acute Comments: support as needed Patient states she has a breast pump at home. (2) Vaginal delivery Priority: Primary Status: Acute Comments: Patient meeting day one milestones. Pain well-controlled with prescribed medications. Voiding without difficulty, tolerating regular diet, lochia light. No bowel movement yet. Anticipate discharge later today - Discharge Medications Prescriptions: New Acetaminophen [Tylenol] 650 mg PO Q6HR PRN tablet PRN Reason: Mild Pain Ibuprofen [Motrin] 600 mg PO Q6HR PRN #60 tablet PRN Reason: Cramping Continue Tablet 1 tab PO DAILY Home Medications: Tablet 1 tab PO DAILY 11/18/16 [History] Acetaminophen [Tylenol] 650 mg PO Q6HR PRN tablet 02/09/19 [Rx] Ibuprofen [Motrin] 600 mg PO Q6HR PRN #60 tablet 02/09/19 [Rx] Allergies/Adverse Reactions: Allergy/AdvReac Type Severity Reaction Status Date / Time No Known Allergies Allergy Verified 11/27/16 06:13 Data Procedures and tests throughout hospitalization: Laboratory Tests 02/08/19 02/08/19 02/09/19 06:38 06:38 04:33 WBC 14.1 H 20.5 H RBC 4.25 3.98 Hgb 11.4 L 10.7 L Hct 36.0 34.0 L MCV 84.7 85.4 MCH 26.8 L 26.9 L MCHC 31.7 31.5 L RDW 13.8 14.3 Plt Count 197 172 MPV 11.7 11.8 Immature Gran % 0.4 0.5 Seg Neutrophils % 84.4 80.8 Lymphocytes % 8.9 12.1 Monocytes % 5.8 5.9 Eosinophils % 0.3 0.5 Basophils % 0.2 0.2 Neutrophils # 11.9 H 16.6 H Lymphocytes # 1.3 2.5 Monocytes # 0.8 1.2 Eosinophils # 0.0 0.1 Basophils # 0.0 0.0 Urine Opiates Screen Negative Ur Barbiturates Screen Negative Ur Phencyclidine Scrn Negative Ur Amphetamines Screen Negative U Benzodiazepines Scrn Negative Urine Cocaine Screen Negative U Marijuana (THC) Screen Negative Ur Drug Screen Interp See Below Labs on day of discharge: Labs from last 24 hours 02/09/19 04:33 WBC 20.5 H RBC 3.98 Hgb 10.7 L Hct 34.0 L MCV 85.4 MCH 26.9 L MCHC 31.5 L RDW 14.3 Plt Count 172 MPV 11.8 Immature Gran % 0.5 Seg Neutrophils % 80.8 Lymphocytes % 12.1 Monocytes % 5.9 Eosinophils % 0.5 Basophils % 0.2 Neutrophils # 16.6 H Lymphocytes # 2.5 Monocytes # 1.2 Eosinophils # 0.1 Basophils # 0.0 Preliminary micro results at discharge 02/08/19 15:15 Placental Culture - Preliminary Placenta 02/08/19 15:15 Placental Culture - Preliminary Placenta Date of admission: 02/08/19 05:58 Primary care physician: Sergio Esteves MD Consults: 02/08/19 15:59 Consult to Television Presenter [CONS] Routine Comment: Vaginal delivery, consult needed Discharging clinician: Neela Valles Anticipated date of discharge: 02/09/19 - Patient Status Disposition: Home, Self-Care Condition: Good Functional capacity at discharge: independent ambulation Overall status at discharge: patient is progressing back to baseline - Discharge Instructions Follow Up With: Sergio Esteves MD [Primary Care Provider] - Luciana Mantilla DO [Partnered Physician] - - Diet and Activity Activity: resume usual activities as tolerated Diet: regular diet Hospital Course Reason for admission: active labor Delivery: Episiotomy: none Laceration: none Other procedures: none complications: none Discharge diagnosis: IUP at term delivered [place] baby: female Hospital course: Delivery Date: 02/08/19 Provider: Luciana Mantilla Intrapartum events: febrile- temp >100.3, polyhydramnios Delivery augmentation: rupture of membranes Delivery monitor: external FHT, external uterine Anesthesia: epidural Quantitated Blood Loss: 400 - Infant (s) Infant A Infant Delivery Date: 02/08/19 Delivery Time: 14:13 Presentation: vertex Position: CHRISTIANO Gender: Female Viability: Viable Pounds: 8 Ounces: 8 Weight Gram: 3.845 kg at 1 minute: 7 at 5 mins: 9 Shoulder Dystocia: not encountered Specimens collected: cord blood Placenta: spontaneous Cord: 3 umbilical vessels - Repair Episiotomy: none Laceration Description: None - Complications Delivery complications: none Delivery comments: Called to room with patient complete and +1 station. Under maternal effort she delivered a viable female weighing 8 pounds 8 oz and Apgars 7 and 9 at one and five minutes respectively over an intact perineum. Following the delivery the cord was allowed to cease pulsations. It was then double clamped and cut with assistance from the father. The placenta delivered spontaneous, complete, and intact with a 3 vessel cord. There were no vaginal, cervical, or vulvar lacerations on exam. No shoulder dystocia or nuchal cord encountered in the delivery. The placenta was ordered to be cultured and sent to pathology due to maternal fever and tachycardia. Mother and are left to recover in the LDR in stable condition. - Disposition Mom disposition: stable in LDR [place] disposition: stable in LDR Time Attestation: Total time spent providing and/or coordinating discharge services: Time Spent: Less than 30 minutes Exam - Constitutional Vitals: Temp Pulse Resp BP Pulse Ox 97.4 F L 79 14 95/59 99 02/09/19 08:36 02/09/19 08:36 02/09/19 08:36 02/09/19 08:36 02/09/19 08:36 General appearance IM: A&O X 3 - Respiratory Respiratory exam: Present: CTAB - Cardiovascular Cardiovascular exam IM: Present: RRR, +S1, +S2 - GI/Abdominal GI/Abdominal exam IM: normal bowel sounds - Rectal Rectal exam: deferred - External exam: normal external exam Uterine Tone: Firm Uterus Position: At Umbilicus, Midline - Extremities Exam Extremities exam IM: Present: full ROM, normal capillary refill, normal inspection - Neurological Exam Neurological exam: alert, normal gait, oriented X3
[2019-02-10] MEDS: Ibuprofen 600 MG TABLET PO PRN (06:49)
[2019-02-10] MEDS: Prenatal Vit/FA 1 EACH TABLET PO SCH (07:42)
--- NOTE | 2019-02-10 09:58 | Discharge Summary ---
Date of Encounter: 02/10/19 Time of Encounter: 09:57 - Discharge Diagnosis (1) anemia Priority: Secondary Status: Acute Comments: Continue iron supplementation (2) Breast feeding status of mother Priority: Secondary Status: Acute Comments: Community resources provided (3) Vaginal delivery Priority: Primary Status: Acute Comments: Feeling well Tolerating regular diet Pain well-controlled with by mouth pain meds Ambulating independently Voiding independently Lochia light Passing flatus, no BM yet Vital signs stable Discharge home today - Discharge Medications Prescriptions: New Acetaminophen [Tylenol] 650 mg PO Q6HR PRN tablet PRN Reason: Mild Pain Ibuprofen [Motrin] 600 mg PO Q6HR PRN #60 tablet PRN Reason: Cramping Ferrous Sulfate 325 mg PO DAILY@0800 #30 tablet Docusate [Colace] 100 mg PO BID #30 capsule Continue Tablet 1 tab PO DAILY Home Medications: Tablet 1 tab PO DAILY 11/18/16 [History] Acetaminophen [Tylenol] 650 mg PO Q6HR PRN tablet 02/09/19 [Rx] Ibuprofen [Motrin] 600 mg PO Q6HR PRN #60 tablet 02/09/19 [Rx] Docusate [Colace] 100 mg PO BID #30 capsule 02/10/19 [Rx] Ferrous Sulfate 325 mg PO DAILY@0800 #30 tablet 02/10/19 [Rx] Allergies/Adverse Reactions: Allergy/AdvReac Type Severity Reaction Status Date / Time No Known Allergies Allergy Verified 11/27/16 06:13 Data Procedures and tests throughout hospitalization: Laboratory Tests 02/08/19 02/08/19 02/09/19 06:38 06:38 04:33 WBC 14.1 H 20.5 H RBC 4.25 3.98 Hgb 11.4 L 10.7 L Hct 36.0 34.0 L MCV 84.7 85.4 MCH 26.8 L 26.9 L MCHC 31.7 31.5 L RDW 13.8 14.3 Plt Count 197 172 MPV 11.7 11.8 Immature Gran % 0.4 0.5 Seg Neutrophils % 84.4 80.8 Lymphocytes % 8.9 12.1 Monocytes % 5.8 5.9 Eosinophils % 0.3 0.5 Basophils % 0.2 0.2 Neutrophils # 11.9 H 16.6 H Lymphocytes # 1.3 2.5 Monocytes # 0.8 1.2 Eosinophils # 0.0 0.1 Basophils # 0.0 0.0 Urine Opiates Screen Negative Ur Barbiturates Screen Negative Ur Phencyclidine Scrn Negative Ur Amphetamines Screen Negative U Benzodiazepines Scrn Negative Urine Cocaine Screen Negative U Marijuana (THC) Screen Negative Ur Drug Screen Interp See Below Labs on day of discharge: Preliminary micro results at discharge 02/08/19 15:15 Placental Culture - Preliminary Placenta 02/08/19 15:15 Placental Culture - Preliminary Placenta Date of admission: 02/08/19 05:58 Primary care physician: Sergio Esteves MD Consults: 02/08/19 15:59 Consult to Marketing And Promotions Manager [CONS] Routine Comment: Vaginal delivery, consult needed Discharging clinician: Tigist Martin Anticipated date of discharge: 02/10/19 - Patient Status Disposition: Home, Self-Care Condition: Good Overall status at discharge: patient is progressing back to baseline - Discharge Instructions Follow Up With: Luciana Mantilla DO [Partnered Physician] - Sergio Esteves MD [Primary Care Provider] - - Diet and Activity Activity: increase activity as tolerated Diet: regular diet Hospital Course Reason for admission: active labor, observation, IUP at term Delivery: Episiotomy: none Laceration: none complications: none Discharge diagnosis: IUP at term delivered [place] baby: female Time Attestation: Total time spent providing and/or coordinating discharge services: Time Spent: Less than 30 minutes Exam - Constitutional Vitals: Temp Pulse Resp BP Pulse Ox 97.7 F 70 14 99/63 98 02/09/19 20:10 02/10/19 07:50 02/10/19 07:50 02/09/19 20:10 02/09/19 20:10 General appearance IM: A&O X 3 - Respiratory Respiratory exam: Present: CTAB - Cardiovascular Cardiovascular exam IM: Present: RRR, +S1, +S2 - GI/Abdominal GI/Abdominal exam IM: normal bowel sounds, no peritoneal signs - Rectal Rectal exam: deferred - Uterine Tone: Firm Uterus Position: At Umbilicus, Midline - Extremities Exam Extremities exam IM: Present: normal capillary refill, normal inspection, radial pulses palpable and symmetrical - Neurological Exam Neurological exam: alert, CN II-XII intact, normal gait, oriented X3, reflexes normal, no focal deficits, strengths equal and symetr throughout - Psychiatric Additional comments: Patient denies history of anxiety or depression. Patient and partner were given stipulations for depression and verbalized understanding of when to seek help.
[2019-02-10 10:24] VITALS: BP 105/68
== END 2019-02-10 11:44 | disposition home or self-care (01) | DRG 560 ==
LOC: 1NENULAB 05:58 → 1NENUOBS 16:59
PROVIDERS: ADMIT Obstetrics & Gynecology; ATTEND Obstetrics & Gynecology